=== PATIENT | female | born 1970 ===

== ENCOUNTER 2022-01-09 11:16 | Outpatient (CLI) | payer OTHER ==
--- NOTE | 2022-01-09 13:44 | XRay Report ---
BILATERAL FEET 3 VIEWS INDICATION: BILATERAL FOOT PAIN. COMPARISON: None. IMPRESSION: Normal bone mineralization. No evidence for fracture, bone lesion or degenerative delgado es. The soft tissues are unremarkable. Normal bilateral feet. Signer Name: Prashanth Darnell Jr, MD Signed: 01/09/2022 1:40 PM Workstation Name: [id number]
== END 2022-01-09 11:17 | disposition home or self-care (01) ==
LOC: XRAY 11:16
PROVIDERS: ATTEND Internal Medicine
DX: M79.671 Pain in right foot (principal); M79.672 Pain in left foot